=== PATIENT | male | born 1970 | race African-American/Black ===

== ENCOUNTER → 2016-06-10 | Outpatient (CLI) | payer OTHER ==
--- NOTE | 2016-06-11 08:14 | DI ---
Indication: [email or web address]: DIAGNOSTIC TESTING PROCEDURE: FOOT RIGHT 3 VIEWS: Encounter: Initial Comparison: None Findings: There is no acute fracture, dislocation or malalignment identified. Impression: No acute osseous abnormality. .
--- NOTE | 2016-06-11 08:14 | DI ---
Indication: [email or web address]: DIAGNOSTIC TESTING PROCEDURE: ANKLE RIGHT 2 VIEW: Encounter: Initial Comparison: None Findings: There is no acute fracture, dislocation or malalignment identified. Impression: No acute osseous abnormality. .
--- NOTE | 2016-06-11 08:14 | DI ---
Indication: [email or web address]: DIAGNOSTIC TESTING PROCEDURE: FOOT LEFT 3 VIEWS: Encounter: Initial Comparison: None Findings: There is no acute fracture, dislocation or malalignment identified. Impression: No acute osseous abnormality. .
--- NOTE | 2016-06-11 08:15 | DI ---
Indication: [email or web address]: DIAGNOSTIC TESTING PROCEDURE: KNEE LEFT 2 VIEW: Encounter: Initial Comparison: None Findings: There is no acute fracture, dislocation or malalignment identified. Mild medial compartment joint space narrowing with small osteophytes. Mild lateral compartment joint space loss. Impression: No acute osseous abnormality. Mild osteoarthritis. .
--- NOTE | 2016-06-11 08:15 | DI ---
Indication: [email or web address]: DIAGNOSTIC TESTING PROCEDURE: KNEE RIGHT 2 VIEW: Encounter: Initial Comparison: None Findings: There is no acute fracture, dislocation or malalignment identified. Mild medial compartment joint space narrowing with tiny osteophytes. Impression: No acute osseous abnormality. .
== END ==
LOC: IMA 16:39
DX: Z02.89 Encounter for other administrative examinations (principal)